=== PATIENT | male | born 1985 | race Caucasian/White ===

== ENCOUNTER → 2022-06-30 09:33 | Outpatient (BNVA) | payer OTHER, SELFPAY | PROVIDERS: PCP Internal Medicine; Referring Provider Internal Medicine; Visit Provider Surgery | DX: L72.3 Sebaceous cyst (principal) | CPT/HCPCS: 99202 ==

== ENCOUNTER 2022-08-08 12:47 | Outpatient (REF) | payer OTHER, SELFPAY ==
[2022-08-08 12:56] VITALS: BP 145/92; PULSE 83; RESP 16; TEMP 36.7; O2SAT 98; BMI 35.6
[2022-08-08 13:20] VITALS: BP 123/89; PULSE 75; RESP 16; O2SAT 98
--- NOTE | 2022-08-08 15:23 | P.OP_ITS ---
Operative Note Operative Note Date of Service: 08/08/22 Narrative: Preoperative diagnosis: Sebaceous cyst left mid back Postoperative diagnosis: Same Procedure: Excision of sebaceous cyst left mid back Surgeon: Roe Celaya MD Director Of Scientific Research: None Anesthesia: Bupivacaine 0.5% with epinephrine Indications for procedure: 37-year-old male patient with an enlarging epidermal inclusion cyst which is causing some discomfort. Operative findings: 1.5 cm epidermal inclusion cyst left mid back Specimen: Epidermal inclusion cyst left mid back Estimated blood loss: Less than 1 mL Complications: None Procedure details: Patient was brought to the minor surgery suite and placed in a prone position. The site of surgery was confirmed by the patient in the left mid back. After assuring informed consent the skin was prepped with Betadine and draped in a sterile fashion. Local anesthesia consisting of 0.5% Sensorcaine with epinephrine was infiltrated around the lesion. Elliptical incision oriented transversely was then created with a scalpel. This was carried out through subcutaneous tissue and around the cyst wall. Sharp dissection was used to excise the cyst from the surrounding subcutaneous tissue. This was passed off the table and sent to pathology for further examination. After assuring adequate hemostasis, the dermis was reapproximated using interrupted 3-0 Polysorb sutures. Skin was then closed using interrupted 3-0 nylon sutures. Sterile dressings consisting of 2 x 2 gauze and Tegaderm were then applied. The patient tolerated the procedure well. Was discharged to home in stable condition.
== END 2022-08-08 12:48 | disposition home or self-care (01) ==
LOC: HO.MS 12:47
PROVIDERS: Visit Provider Surgery
PROC: (CPT 11402; principal; 2022-08-08 13:00)
DX: L72.3 Sebaceous cyst (principal)
CPT/HCPCS: 11402; 88304

== ENCOUNTER 2024-08-11 07:15 | Outpatient (REF) | payer OTHER, SELFPAY ==
--- NOTE | ~2024-08-11 | MR_ITS ---
EXAMINATION: MRI LEFT SHOULDER WITHOUT CONTRAST CLINICAL INFORMATION: LEFT SHOULDER PAIN COMPARISON: None. TECHNIQUE: MRI of the shoulder without contrast is performed on a 1.5 Irais high-field scanner. FINDINGS: ROTATOR CUFF: Intact. No muscle atrophy or fatty infiltration. BICEPS: Normal. CORACOACROMIAL ARCH: The undersurface of the acromion is curved with no subacromial spur. Mild acromioclavicular osteoarthritis. LABRUM/CAPSULE: Probable small undersurface tear of the posterior labrum at the 9-10 o'clock position. There are areas of capsular edema and slight irregularity involving the posterior and inferior glenoid attachments. There is edema along the rotator cuff interval. This finding could represent recent injury/sprain or adhesive capsulitis. GLENOHUMERAL JOINT/MARROW: Moderate joint effusion with mild synovitis. Mild marrow edema at the superolateral aspect of the humeral head, the inferomedial humeral head and pericapsular edema may be an indicator of an inflammatory arthritis. Focal cartilage irregularity at the inferior glenoid. Small osteophyte of the inferior glenoid rim. ADDITIONAL FINDINGS: None. MR/MR shoulder LT wo con IMPRESSION: 1. No rotator cuff tear. 2. Probable small undersurface tear of the posterior labrum. 3. Moderate joint effusion with mild synovitis. Mild marrow edema at the superolateral aspect of the humeral head and pericapsular edema may be an indicator of an inflammatory arthritis and/or adhesive capsulitis. 4. Mild acromioclavicular osteoarthritis. Electronically signed by: Ankur Avilez MD 08/17/2024 09:29 AM [facility]
== END 2024-08-11 07:16 | disposition home or self-care (01) ==
LOC: HO.MRI 07:15
PROVIDERS: PCP Internal Medicine; Visit Provider Internal Medicine
DX: M25.512 Pain in left shoulder (principal)
CPT/HCPCS: 73221